=== PATIENT | female | born 2000 | race Caucasian/White ===

== ENCOUNTER 2021-07-15 09:41 | Emergency (ER) | payer BC, OTHER ==
[2021-07-15 14:48] LABS: Absolute Lymphocytes (CBC) 1.4 K/uL (0.7-4.9); Basophils % 0.2 % (0-1.3); Hematocrit 35.4 % (36.0-45.0); Lymphocytes % 10.7 % (15.3-44.8); RBC Red Blood Cell Count 3.98 M/uL (3.86-4.86)
[2021-07-15] MEDS ORDERED: NA CHLORIDE 0.9% 1,000 ML ONE (14:48)
[2021-07-15 14:49] LABS: Protime INR 0.95
[2021-07-15 15:06] LABS: ALT/SGPT 16 U/L (12-78); AST/SGOT 9 U/L (15-37); Albumin 2.9 g/dL (3.4-5.0); Alkaline Phosphatase 67 U/L (45-117); BUN Blood Urea Nitrogen 7 mg/dL (7-18); Bicarbonate 23 mmol/L (21-32); Bilirubin Direct < 0.1 mg/dL (0-0.2); Bilirubin Total 0.1 mg/dL (0.2-1.0); Glucose Level 73 mg/dL (74-106); Lipase 67 U/L (73-393); Magnesium 1.7 mg/dL (1.8-2.4); NT PRO-BNP 49 pg/mL (<125); Potassium 3.8 mmol/L (3.5-5.1); Protein, Total 6.5 g/dL (6.4-8.2); Sodium Level 138 mmol/L (136-145); Troponin (Emerg Dept Use Only) < 0.02 ng/mL (0.0-0.045)
--- NOTE | 2021-07-15 15:21 | ER ---
Nurse's Notes [facility] Name: Kelli Mayes Age: 21 yrs Sex: Female : 2000 Arrival Date: 07/15/2021 Time: 09:42 Bed 9 Private MD: Diagnosis: Chest pain on breathing;Hypomagnesemia;Hypoglycemia, unspecified;28 weeks gestation of Presentation: 07/15 09:57 Chief complaint: Patient states: Intermittent chest pain with coughing or sneezing x 1 jl7 week, intermittent abdominal cramping x 2 days. Coronavirus screen: Vaccine status: Patient reports being unvaccinated. At this time, the client does not indicate any symptoms associated with coronavirus-19. Ebola Screen: No symptoms or risks identified at this time. Initial Sepsis Screen: Does the patient meet any 2 criteria? No. Patient's initial sepsis screen is negative. Does the patient have a suspected source of infection? No. Patient's initial sepsis screen is negative. Risk Assessment: Do you want to hurt yourself or someone else? Patient reports no desire to harm self or others. Onset of symptoms was July 08, 2021. 09:57 Method Of Arrival: Ambulatory 7 09:57 Acuity: JEFF 3 jl7 TECHNICIAN BIOLOGICAL HEALTH: 14:40 Verified ap3 Historical: - Allergies: 10:02 No Known Allergies; jl7 - Home Meds: 10:02 None [Active]; jl7 - PMHx: 10:02 None; jl7 - PSHx: 10:02 None; jl7 - Immunization history:: Adult Immunizations up to date. - Social history:: Smoking status: Patient denies any tobacco usage or history of. - Family history:: not pertinent. Screenin:40 Abuse screen: Denies threats or abuse. Nutritional screening: No deficits noted. ap3 Tuberculosis screening: No symptoms or risk factors identified. Fall Risk None identified. Assessment: 14:39 General: Appears in no apparent distress. comfortable, Behavior is calm, cooperative, ap3 appropriate for age. Pain: Complains of pain in chest Pain does not radiate. Pain began intermittently Alleviated by rest, Aggravated by exercise, increased activity, repositioning. Neuro: Level of Consciousness is awake, alert, obeys commands, Oriented to person, place, time, situation, Appropriate for age Soldering Machine Feeder are equal bilaterally Moves all extremities. Gait is steady, Speech is normal. Cardiovascular: Capillary refill < 3 seconds Patient's skin is warm and dry. Respiratory: Airway is patent Respiratory effort is even, unlabored, Respiratory pattern is regular, symmetrical. GI: No signs and/or symptoms were reported involving the gastrointestinal system. Vital Signs: 09:57 BP 136 / 79; Pulse 84; Resp 17; Temp 98; Pulse Ox 99% ; Weight 75.3 kg; Height 5 ft. 2 jl7 in. (157.48 cm); Pain 0/10; 16:27 BP 118 / 76; Pulse 68; Resp 17; Pulse Ox 100% on R/A; ap3 09:57 Body Mass Index 30.36 (75.30 kg, 157.48 cm) jl7 ED Course: 09:42 Patient arrived in ED. as 10:02 Triage completed. jl7 10:02 Arm band placed on right wrist. Patient Sent to L\T\D for evaluation, will return to ED jl7 after. 14:14 Ledy Mike RN is Primary Nurse. ap3 14:20 Inserted saline lock: 20 gauge in left antecubital area, using aseptic technique. Blood ap3 collected. 14:22 Mervin Leung MD is Attending Physician. dayana 14:40 Patient has correct armband on for positive identification. Placed in gown. Call light ap3 in reach. Pulse ox on. NIBP on. Door closed. Noise minimized. Warm blanket given. 14:41 Patient maintains SpO2 saturation greater than 95% on room air. ap3 15:20 Rk Delgado MD is Referral Physician. dayana 15:21 Shreyas Chavez MD is Referral Physician. dayana 15:30 Chest Single View XRAY: shield In Process Unspecified. EDMS 16:25 No provider procedures requiring assistance completed. IV discontinued, intact, ap3 bleeding controlled, No redness/swelling at site. Pressure dressing applied. Administered Medications: 14:39 Drug: NS 0.9% 1000 ml Route: IV; Rate: 125 ml/hr; Site: left antecubital; ap3 16:26 Follow up: Response: No adverse reaction ap3 16:26 Follow up: Response: No adverse reaction ap3 15:40 Drug: Magnesium Sulfate 1 grams Route: IVPB; Infused Over: 1 hrs; Site: left ap3 antecubital; 16:26 Follow up: IV Status: Completed infusion ap3 Outcome: 15:21 Discharge ordered by MD. anne 16:25 Discharged to home ambulatory. ap3 16:25 Condition: good 16:25 Discharge instructions given to patient, Instructed on discharge instructions, follow up and referral plans. Demonstrated understanding of instructions, follow-up care. 16:26 Patient left the ED. ap3 Signatures: Dispatcher [employer] EDMervin Lyons MD MD cha Martinez, Amelia as Leal, Jahala, RN RN jl7 Ledy Mike RN RN ap3
--- NOTE | 2021-07-15 15:21 | EDPHYS ---
Physician Documentation [facility] Name: Kelli Mayes Age: 21 yrs Sex: Female : 2000 Arrival Date: 07/15/2021 Time: 09:42 Bed 9 Private MD: ED Physician Mervin Leung HPI: 07/15 15:13 This 21 yrs old Female presents to ER via Ambulatory with complaints of Chest dayana Pain, . 15:13 The patient or guardian reports chest pain that is located primarily in the anterior dayana chest wall, bilaterally. The pain does not radiate. Associated signs and symptoms: Pertinent positives: cough. The chest pain is described as aching. Duration: The patient or guardian reports multiple episodes, that wax and wane. Modifying factors: The symptoms are alleviated by nothing. the symptoms are aggravated by cough. Severity of pain: At its worst the pain was very mild in the emergency department the pain is unchanged. The patient has not experienced similar symptoms in the past. LIABILITY ANALYST: 14:40 Verified ap3 Historical: - Allergies: 10:02 No Known Allergies; jl7 - Home Meds: 10:02 None [Active]; jl7 - PMHx: 10:02 None; jl7 - PSHx: 10:02 None; jl7 - Immunization history:: Adult Immunizations up to date. - Social history:: Smoking status: Patient denies any tobacco usage or history of. - Family history:: not pertinent. ROS: 15:13 Constitutional: Negative for fever, chills, and weight loss, Eyes: Negative for injury, dayana pain, redness, and discharge, ENT: Negative for injury, pain, and discharge, Neck: Negative for injury, pain, and swelling, Respiratory: Negative for shortness of breath, cough, wheezing, and pleuritic chest pain, Abdomen/GI: Negative for abdominal pain, nausea, vomiting, diarrhea, and constipation, Back: Negative for injury and pain, : Negative for injury, bleeding, discharge, and swelling, MS/Extremity: Negative for injury and deformity, Skin: Negative for injury, rash, and discoloration, Neuro: Negative for headache, weakness, numbness, tingling, and seizure, Psych: Negative for depression, anxiety, suicide ideation, homicidal ideation, and hallucinations, Allergy/Immunology: Negative for hives, rash, and allergies, Endocrine: Negative for neck swelling, polydipsia, polyuria, polyphagia, and marked weight changes, Hematologic/Lymphatic: Negative for swollen nodes, abnormal bleeding, and unusual bruising. 15:13 Cardiovascular: Positive for chest pain. 15:13 Respiratory: Positive for cough, with no reported sputum. Exam: 15:13 Constitutional: This is a well developed, well nourished patient who is awake, alert, dayana and in no acute distress. Head/Face: Normocephalic, atraumatic. Eyes: Pupils equal round and reactive to light, extra-ocular motions intact. Lids and lashes normal. Conjunctiva and sclera are non-icteric and not injected. Cornea within normal limits. Periorbital areas with no swelling, redness, or edema. ENT: Nares patent. No nasal discharge, no septal abnormalities noted. Tympanic membranes are normal and external auditory canals are clear. Oropharynx with no redness, swelling, or masses, exudates, or evidence of obstruction, uvula midline. Mucous membranes moist. Neck: Trachea midline, no thyromegaly or masses palpated, and no cervical lymphadenopathy. Supple, full range of motion without nuchal rigidity, or vertebral point tenderness. No Meningismus. Chest/axilla: Normal chest wall appearance and motion. Nontender with no deformity. No lesions are appreciated. Cardiovascular: Regular rate and rhythm with a normal S1 and S2. No gallops, murmurs, or rubs. Normal PMI, no JVD. No pulse deficits. Respiratory: Lungs have equal breath sounds bilaterally, clear to auscultation and percussion. No rales, rhonchi or wheezes noted. No increased work of breathing, no retractions or nasal flaring. Abdomen/GI: Soft, non-tender, with normal bowel sounds. No distension or tympany. No guarding or rebound. No evidence of tenderness throughout. Back: No spinal tenderness. No costovertebral tenderness. Full range of motion. Skin: Warm, dry with normal turgor. Normal color with no rashes, no lesions, and no evidence of cellulitis. MS/ Extremity: Pulses equal, no cyanosis. Neurovascular intact. Full, normal range of motion. Neuro: Awake and alert, GCS 15, oriented to person, place, time, and situation. Cranial nerves II-XII grossly intact. Motor strength 5/5 in all extremities. Sensory grossly intact. Cerebellar exam normal. Normal gait. Psych: Awake, alert, with orientation to person, place and time. Behavior, mood, and affect are within normal limits. 15:13 Musculoskeletal/extremity: Extremities: all appear grossly normal, with no appreciated pain with palpation, ROM: no acute changes, intact in all extremities, full active range of motion, full passive range of motion, Circulation is intact in all extremities. Pulses: are normal with no appreciated deficits, Sensation intact. Compartment Syndrome exam of affected extremity: is normal. DVT Exam: No signs of deep vein thrombosis. no pain, no swelling, no tenderness, negative Homans' sign noted on exam, no appreciated bluish discoloration, no erythema, no increased warmth. 15:30 ECG was reviewed by the Attending Physician. [facility] Vital Signs: 09:57 BP 136 / 79; Pulse 84; Resp 17; Temp 98; Pulse Ox 99% ; Weight 75.3 kg; Height 5 ft. 2 jl7 in. (157.48 cm); Pain 0/10; 16:27 BP 118 / 76; Pulse 68; Resp 17; Pulse Ox 100% on R/A; ap3 09:57 Body Mass Index 30.36 (75.30 kg, 157.48 cm) jl7 MDM: 14:22 Patient medically screened. dayana 15:16 Differential diagnosis: abnormal EKG, acute pericarditis, anxiety, chest wall pain, dayana Cholelithiasis costochondritis, esophagitis, pancreatitis, peptic ulcer disease, pneumonia, stable angina, unstable angina. HEART Score: History: Slightly Suspicious (0), ECG: Normal (0), Age: < or = 45 years (0), Risk Factors: No Risk Factors Known (0), Troponin: < or = 1 x Normal Limit (0), Total Score = 0. The patient's deep vein thrombosis risk score was calculated as follows: Total Score: 0. This patient was found to be at low risk for a deep vein thrombosis by using the Well's assessment criteria. The patient's pulmonary embolism risk score was calculated as follows: Total Score: 0-2 points. This patient was found to be at low risk for a pulmonary embolism by using the Well's assessment criteria. RHONDA Risk Score: TOTAL SCORE = 0. Data reviewed: vital signs, nurses notes, lab test result(s), EKG, radiologic studies, plain films. Data interpreted: personnel monitor: rate is 84 beats/min, rhythm is regular, Pulse oximetry: on room air is 99 %. Test interpretation: by ED physician or midlevel provider: ECG, plain radiologic studies. Counseling: I had a detailed discussion with the patient and/or guardian regarding: the historical points, exam findings, and any diagnostic results supporting the discharge/admit diagnosis, lab results, radiology results, the need for outpatient follow up, for definitive care, a emergency room doctor, an OB/Gyne specialist. 07/15 11:19 Order name: Basic Metabolic Panel; Complete Time: 15:10 [facility] 07/15 11:19 Order name: CBC with Diff; Complete Time: 15:10 [facility] 07/15 11:19 Order name: LFT's; Complete Time: 15:10 [facility] 07/15 11:19 Order name: Magnesium; Complete Time: 15:10 [facility] 07/15 11:19 Order name: NT PRO-BNP; Complete Time: 15:10 [facility] 07/15 11:19 Order name: PT-INR; Complete Time: 15:10 [facility] 07/15 11:19 Order name: Troponin (emerg Dept Use Only); Complete Time: 15:10 [facility] 07/15 11:19 Order name: IV Saline Lock; Complete Time: 14:39 [facility] 07/15 11:19 Order name: Labs collected and sent; Complete Time: 14:39 [facility] 07/15 15:01 Order name: Lipase; Complete Time: 15:10 [facility] 07/15 15:12 Order name: Chest Single View XRAY: shield [facility] 07/15 15:11 Order name: PO challenge: juice; Complete Time: 15:32 dayana EC:30 Rate is 85 beats/min. Rhythm is regular. QRS [place] is Normal. NH interval is normal. QRS dayana interval is normal. QT interval is normal. No Q waves. T waves are Normal. No ST changes noted. Clinical impression: NSR w/ Non-specific ST/T Changes and No evidence of ischemia. Interpreted by me. Reviewed by me. Administered Medications: 14:39 Drug: NS 0.9% 1000 ml Route: IV; Rate: 125 ml/hr; Site: left antecubital; ap3 16:26 Follow up: Response: No adverse reaction ap3 16:26 Follow up: Response: No adverse reaction ap3 15:40 Drug: Magnesium Sulfate 1 grams Route: IVPB; Infused Over: 1 hrs; Site: left ap3 antecubital; 16:26 Follow up: IV Status: Completed infusion ap3 Disposition Summary: 07/15/21 15:21 Discharge Ordered Location: Home dayana Problem: new dayana Symptoms: have improved dayana Condition: Stable dayana Diagnosis - Chest pain on breathing dayana - Hypomagnesemia dayana - Hypoglycemia, unspecified dayana - 28 weeks gestation of dayana Followup: dayana - With: Private Physician - When: 2 - 3 days - Reason: Recheck today's complaints, Continuance of care, Re-evaluation by your physician Followup: dayana - With: Rk Delgado MD - When: 2 - 3 days - Reason: Recheck today's complaints, Re-evaluation by your physician Followup: dayana - With: Shreyas Chavez MD - When: 2 - 3 days - Reason: Recheck today's complaints, Re-evaluation by your physician Discharge Instructions: - Discharge Summary Sheet dayana - Nonspecific Chest Pain, Adult dayana - Third Trimester of dayana - Chest Wall Pain, [id number] dayana - Hypoglycemia dayana - Hypomagnesemia dayana - Nonspecific Chest Pain, Adult, [id number] dayana - Third Trimester of , [id number] dayana Forms: - Medication Reconciliation Form dayana - Thank You Letter dayana - Antibiotic Education dayana - Prescription Opioid Use dayana - Work release form ap3 Signatures: Dispatcher [employer] Mervin Barker MD MD cha Calderon, Audri RN RN aa5 Joshua Carney RN RN jl7 Ledy Mike RN RN ap3 Corrections: (The following items were deleted from the chart) 15:03 14:23 LIPASE+C.LAB.BRZ ordered. EDMS EDMS
--- NOTE | 2021-07-15 15:41 | RAD REPORT ---
EXAM DESCRIPTION: RAD - Chest Single View - 07/15/2021 3:30 pm CLINICAL HISTORY: CHEST PAIN COMPARISON: No comparisons FINDINGS: No evidence of edema or pneumonia. The heart size is within normal limits.No acute osseous abnormality. No significant pleural effusions or pneumothorax. IMPRESSION: No acute cardiopulmonary disease.
[2021-07-15 16:32] VITALS: BP 136/79; TEMP 98; O2SAT 99
--- NOTE | 2021-07-16 12:51 | EKG ---
Test Date: 2021-07-15 Test Time: 15:37:05 Consultant In Ergonomics And Safety: SURYA MEASUREMENT RESULTS: Intervals: Rate: 93 MS: 150 QRSD: 80 QT: 348 QTc: 432 [place]: P: 20 MS: 150 QRS: 28 T: 35 INTERPRETIVE STATEMENTS: Normal sinus rhythm with sinus arrhythmia Low voltage QRS Cannot rule out Anterior infarct, age undetermined Abnormal ECG No previous ECG available for comparison Electronically Signed On 07-16-21 12:50:28 CDT by Shreyas Chavez
== END 2021-07-15 16:26 | disposition home or self-care (01) ==
LOC: ER 09:41
DX: O99.282 Endocrine, nutritional and metabolic diseases complicating pregnancy, second trimester (principal); E83.42 Hypomagnesemia; O99.810 Abnormal glucose complicating pregnancy; Z3A.28 28 weeks gestation of pregnancy
CPT/HCPCS: 96365; 93005; 85025; 80048; 36415; 83735; 85610; 80076; 84484; 83690; 83880; 71045; 99284; J7030